=== PATIENT | female | born 1975 | race Caucasian/White ===

== ENCOUNTER 2020-07-02 12:53 | Emergency (ER) | payer MEDICAID ==
[~2020-07-02] VITALS: Ht 160 cm; Wt 140.1 kg
[~2020-07-02 12:53] MED LIST: GABA300C10 PO; HYDR12.517 PO; MUSCLE RELAXER
[2020-07-02] MEDS ORDERED: KETOROLAC 30 MG/1 ML IM ONE (13:30)
[2020-07-02] MEDS ORDERED: KETOROLAC 30 MG/1 ML ONE (13:35)
[2020-07-02 14:08] LABS: HCG UR SG 1.026 (1.003-1.030)
[2020-07-02 14:19] LABS: MICROSCOPIC INDICATED
[2020-07-02 15:00] VITALS: BP 121/77
--- NOTE | 2020-07-02 15:01 | NUR ---
BREAK RN: PT RESTING IN ROOM. NO ACUTE DISTRESS NOTED. VS STABLE. CALL LIGHT IN PLACE. WILL CONTINUE TO MONITOR.
--- NOTE | 2020-07-02 15:34 | NUR ---
BREAK RN: REPORT GIVEN TO LONNIE ROBINS
== END 2020-07-02 16:34 | disposition home or self-care (01) ==
LOC: ED 16:30
DX: M54.41 Lumbago with sciatica, right side (principal); J00 Acute nasopharyngitis [common cold]; I10 Essential (primary) hypertension; Z88.8 Allergy status to other drugs, medicaments and biological substances; Z87.891 Personal history of nicotine dependence
CPT/HCPCS: 71045; 74176; 81001; 81025; 87086; 96372; 99285; J1885

== ENCOUNTER 2020-10-18 09:29 | Emergency (ER) | payer MEDICAID ==
[~2020-10-18] VITALS: Ht 160 cm; Wt 128.0 kg
[2020-10-18 09:32] VITALS: BP 134/91
[2020-10-18] MEDS ORDERED: LIDOCAINE-MPF 1%, 5ML ONE ×2 (09:47→09:59)
[2020-10-18] MEDS ORDERED: GABA600T7 PO (09:52)
[2020-10-18] MEDS ORDERED: LIDOCAINE-MPF 1%, 5ML INFIL ONE (10:00)
[2020-10-18] MEDS ORDERED: DIPH,PERTUSS(ACELL),TET VAC/PF 0.5 ML IM-VACC ONE ×2 (10:00→10:35)
[2020-10-18] MEDS ORDERED: ACETAMINOPHEN 325 MG TABLET PO ONE (10:30)
[2020-10-18] MEDS ORDERED: ACETAMINOPHEN 325 MG TABLET ONE (10:35)
== END 2020-10-18 11:19 | disposition home or self-care (01) ==
LOC: ED 11:00
DX: S61.411A Laceration without foreign body of right hand, initial encounter (principal); X58.XXXA Exposure to other specified factors, initial encounter; Y93.89 Activity, other specified; Y92.89 Other specified places as the place of occurrence of the external cause; Y99.8 Other external cause status
CPT/HCPCS: 12042; 90471; 90715; 99284

== ENCOUNTER 2020-10-30 11:06 | Emergency (ER) | payer MEDICAID ==
[~2020-10-30] VITALS: Ht 160 cm; Wt 129.9 kg
[~2020-10-30 11:06] MED LIST changes: +GABA600T7 PO
[2020-10-30 11:26] VITALS: BP 172/99
--- NOTE | 2020-10-30 11:37 | NUR ---
SAKINA BURGOS AT .
--- NOTE | 2020-10-30 12:06 | NUR ---
NEW GAUZE DRESSING AND KERLIX WRAP APPLIED TO R HAND WOUND.
--- NOTE | 2020-10-30 12:06 | NUR ---
ER PA WAS IN TO SEE PT AND ASSESS WOUND. SKIN FLAP ~1.5 INCHES, NOT COMPLETELY APPROXIMATED. NO S/S OF INFECTION. SUTURES REMOVED PER ER PA. STERI STRIPS APPLIED. ADVISED PT TO KEEP WOUND COVERED, CLEAN & DRY. D/C INSTRUCTIONS & F/U APPT WITH PLASTIC SURGERY [facility] WITH PT. PT AMBULATED OUT OF ED WITHOUT DIFFICULTY. Addendum: 10/30/20 at 1209 by [place] ER PA WAS IN TO SEE PT AND ASSESS WOUND TO PALM OF R HAND. SKIN FLAP ~1.5 INCHES, NOT COMPLETELY APPROXIMATED. NO S/S OF INFECTION. SUTURES REMOVED PER ER PA. STERI STRIPS APPLIED. ADVISED PT TO KEEP WOUND COVERED, CLEAN & DRY. D/C INSTRUCTIONS & F/U APPT WITH PLASTIC SURGERY ' WITH PT. PT AMBULATED OUT OF ED WITHOUT DIFFICULTY.
== END 2020-10-30 12:11 | disposition home or self-care (01) ==
LOC: ED 12:08
DX: S61.411D Laceration without foreign body of right hand, subsequent encounter (principal); I10 Essential (primary) hypertension; X58.XXXD Exposure to other specified factors, subsequent encounter
CPT/HCPCS: 99282